=== PATIENT | male | born 1980 | race Two or more races ===

== ENCOUNTER 2019-09-24 08:44 | Emergency (ER) | payer SELFPAY ==
[~2019-09-24] VITALS: Ht 182.9 cm; Wt 111.1 kg
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
[2019-09-24 10:23] VITALS: BP 152/88
--- NOTE | 2019-09-24 10:24 | NUR ---
Patient discharged to home in stable condition. Written and verbal after care instructions given. Patient verbalizes understanding of instruction.
== END 2019-09-24 10:24 | disposition home or self-care (01) ==
LOC: ER 08:48
DX: R51 Headache (principal); M54.2 Cervicalgia; R41.0 Disorientation, unspecified; M25.512 Pain in left shoulder; V49.49XA Driver injured in collision with other motor vehicles in traffic accident, initial encounter; Y93.89 Activity, other specified; Y92.413 State road as the place of occurrence of the external cause; Y99.8 Other external cause status
CPT/HCPCS: 70450-TC; 71045-TC; 72125-TC